=== PATIENT | male | born 1985 | race Caucasian/White ===

== ENCOUNTER 2017-08-02 10:33 | Emergency (ER) | payer MEDICAID, OTHER ==
[~2017-08-02] VITALS: Wt 84.0 kg
[2017-08-02] MEDS ORDERED: ACETAMINOPHEN 500 MG TAB PO STA (11:58)
[2017-08-02] MEDS ORDERED: IBUPROFEN 800 MG TAB PO ONE (12:00)
--- NOTE | 2017-08-02 12:04 | ERD ---
ER Documentation Chief Complaint Date/Time DATE: 08/02/17 TIME: 12:00 Chief Complaint HEADACHE, FLANK PAIN, FEVER HPI 32-year-old male who presents emergency department for multiple complaints including headache, flank pain, fever, productive cough. Stated that she has been having yellowish phlegm in the morning for 3 days. Added that he took 3 tablets of Advil 200 mg last night around 10 PM. Denies that this is the worst headache of his life, head trauma, dizziness, blurred vision, neck pain, throat pain, difficulty swallowing, shoulder pain, chest pain, abdominal pain, nausea, vomiting, constipation, diarrhea, recent travel, recent exposure to any illness, recent antibiotic use in the last 3 months, numbness or tingling sensation. No known drug allergies. No past medical history. No surgeries. Does not take any prescription medication at home. Social: Works as a manager pest. Denies smoking, use of alcohol, use of illegal drugs. ROS All systems reviewed and are negative except as per history of present illness. Medications Home Meds Active Scripts Acetaminophen* (Tylophen*) 500 Mg Capsule, 1 CAP PO Q6H Y for PAIN AND OR ELEVATED TEMP, #20 CAP Prov:SCARLETIVETAMIKELTON Rodrigues 08/02/17 Prednisone* (Prednisone*) 20 Mg Tab, 40 MG PO DAILY for 4 Days, TAB Prov:KRUPAKATTYAMIKELTON F 08/02/17 Albuterol Sulfate* (Proair HFA*) 8.5 Gm Hfa.aer.ad, 2 PUFF INH Q4, #1 INHALER Prov:KRUPAKATTYAMIKELTON Lilia 08/02/17 Azithromycin* (Zithromax*) 250 Mg Tablet, 250 MG PO .ZPACK DIRECTED, #6 TAB TAKE 500 MG (2 TABS) THE FIRST DAY THEN 250 MG (1 TAB) DAYS 2-5 Prov:NEAL SHAW 08/02/17 Allergies Allergies: Coded Allergies: No Known Allergy (Unverified , 08/02/17) Physical Exam Vitals Vital Signs Date Time Temp Pulse Resp B/P Pulse Ox O2 Delivery O2 Flow Rate FiO2 08/02/17 14:25 98.9 78 18 116/75 98 Room Air 08/02/17 12:58 101.2 88 18 128/69 98 Room Air 08/02/17 10:38 102.9 84 18 136/66 98 Physical Exam Const: [] Head: Atraumatic Eyes: Normal Conjunctiva ENT: Normal External Ears, Nose and Mouth. Throat: Uvula is midline nondisplaced. Tonsils are +2 bilaterally without redness and without exudates. Tolerating secretions. Patent airway. Speaks full and clear sentences. Neck: Full range of motion..~ No meningismus. Resp: Clear to auscultation bilaterally. No crepitus. Cardio: Regular rate and rhythm, no murmurs Abd: Soft, non tender, non distended. Normal bowel sounds Skin: No petechiae or rashes Back: No midline or flank tenderness. No CVA tenderness. Ext: No cyanosis, or edema Neur: Awake and alert Psych: Normal Mood and Affect Results 24 hrs Laboratory Tests Test 08/02/17 12:03 Urine Color YELLOW Urine Clarity CLEAR Urine pH 7.0 Urine Specific [place] 1.020 Urine Ketones NEGATIVEmg/dL Urine Nitrite NEGATIVEmg/dL Urine Bilirubin NEGATIVEmg/dL Urine Urobilinogen 2+mg/dL Urine Leukocyte Esterase NEGATIVELeu/ul Urine Microscopic RBC 9/HPF Urine Microscopic WBC 0/HPF Urine Hemoglobin 1+mg/dL Urine Glucose NEGATIVEmg/dL Urine Total Protein 1+mg/dl Current Medications Medications (Trade) Dose Ordered Sig/Yael Route PRN Reason Start Time Stop Time Status Last Admin Dose Admin Ibuprofen (Motrin) 800 mg ONCE ONCE PO 08/02/17 12:00 08/02/17 12:01 DC 08/02/17 12:07 Acetaminophen (Tylenol Tab) 1,000 mg ONCE STAT PO 08/02/17 11:58 08/02/17 12:00 DC 08/02/17 12:07 Ceftriaxone Sodium (Rocephin) 1 gm ONCE ONCE IM 08/02/17 13:00 08/02/17 13:01 DC 08/02/17 12:54 Procedures/MDM Examination: Please see physical examination. Disease process, medical treatment was explained to the patient and family member. They verbalized understanding and agreed with the diagnostic tests, medical treatment, and follow-up care. Radiology: Chest x-ray Impression: Right middle lobe infiltrate. Recommend correlation with pneumonia and follow-up to resolution. Treatment: Motrin. Tylenol.Ceftriaxone IM. Re-evaluation: Denies headache, dizziness, blurry vision, neck pain, shoulder pain, chest pain, back pain, abdominal pain, nausea, vomiting. No episode of emesis in the emergency department. Alert and oriented 4. Speaks full and clear sentences. Respirations even and unlabored. Lung sounds clear to auscultation. Active bowel sounds. There is no right upper/right lower/ epigastric/left upper/left lower abdominal tenderness and light and deep palpation. Negative on Rovsings sign. Negative Guttenberg sign. Able to jump 5 times without developing right-sided abdominal pain. No peritoneal signs. No episode of emesis in the emergency department.Ambulatory with steady gait. No neurovascular deficits. No neurological deficits. Consultation: Case discussed with supervising physician, Dr. Laureano Wilks agreed in my medical decision making to give 1 dose of ceftriaxone here in the emergency department and discharge patient if afebrile after antipyretics. Differential diagnosis: Sepsis versus pneumonia versus bronchitis Medical decision m[age]-year-old male who presents emergency department for multiple complaints including headache, flank pain, fever, productive cough. Stated that she has been having yellowish phlegm in the morning for 3 days. Added that he took 3 tablets of Advil 200 mg last night around 10 PM. Patient's complaint, patient's history about his complaint, my physical findings, diagnostic tests results, my reevaluation are consistent my final diagnosis of Pneumonia. Patient was afebrile prior to discharge. Medications prescribed are the following: Azithromycin. Pro-air. Prednisone. Tylenol. Patient and family member are made aware of the side effects and adverse reactions of the medications prescribed. Instructed on when to seek emergent and medical attention in case allergic/anaphylactic reactions or severe side effects and or adverse reactions to medications. Patient and family member verbalized understanding. Patient instructed Instructed to follow-up with his PCP in 24-48 hours. Instructed to Call 911 for chest pain, shortness of breath. Advised to come back here in ED as soon as possible for severity of symptoms which includes but not limited to: any new symptoms; shortness of breath/difficulty of breathing; cardiovascular changes; severe gastrointestinal symptoms; signs and symptoms of bleeding and or infection; signs of compartment syndrome/neurovascular changes; neurological changes/deficits. Patient and family member verbalized understanding. Upon discharge, patient is alert and oriented x 4, speaks full and clear sentences, denies pain, has no neurological deficits, has no neurovascular deficits, difficulty of breathing. Breathing even and unlabored. Lung sounds are clear to auscultation. Not in distress. Appears comfortable. Ambulatory with steady gait. Appears satisfied with care provided here in ED. Departure Diagnosis: Primary Impression: PNA (pneumonia) Condition: Stable Additional Instructions: Instructed to follow-up with his PCP in 24-48 hours. Instructed to Call 911 for chest pain, shortness of breath. Advised to come back here in ED as soon as possible for severity of symptoms which includes but not limited to: any new symptoms; shortness of breath/difficulty of breathing; cardiovascular changes; severe gastrointestinal symptoms; signs and symptoms of bleeding and or infection; signs of compartment syndrome/neurovascular changes; neurological changes/deficits. Patient and family member verbalized understanding. NEAL SHAW Aug 02, 2017 12:04
--- NOTE | 2017-08-02 12:24 | RADRPT ---
PROCEDURE: Chest radiograph series. CLINICAL INDICATION: Cough TECHNIQUE: PA and lateral chest x-ray. COMPARISON: None available FINDINGS: The cardiomediastinal silhouette is unremarkable. There is dense opacification of the right middle l obe consistent with infiltrate. The lungs are otherwise clear. No pleural effusion is seen. The osse ous structures are unremarkable. IMPRESSION: 1. Right middle lobe infiltrate. Recommend correlation with pneumonia and follow up to resolution.. RPTAT: AA .nAthony Caceres MD, MD Date Time Electronically viewed and signed by .Anthony Caceres MD, on 08/02/2017 12:24 .B/
[2017-08-02 12:36] LABS: ADD UMIC YES; UR ASCORBIC ACID NEGATIVE (NEGATIVE); UR BILIRUBIN (Dip) NEGATIVE (NEGATIVE); UR BLOOD (Dip) 1+ mg/dL (NEGATIVE); UR CLARITY CLEAR (CLEAR); UR COLOR YELLOW (YELLOW); UR GLUCOSE (Dip) NEGATIVE (NEGATIVE); UR KETONES (Dip) NEGATIVE (NEGATIVE); UR LEUKOCYTE ESTERASE (Dip) NEGATIVE Leu/ul (NEGATIVE); UR NITRITE (Dip) NEGATIVE (NEGATIVE); UR RBC 9 /HPF (0-5); UR TOTAL PROTEIN (Dip) 1+ mg/dl (NEGATIVE); UR UROBILINOGEN (Dip) 2+ mg/dL (NEGATIVE)
[2017-08-02] MEDS ORDERED: CEFTRIAXONE 1 GM INJ IM ONE (13:00)
[2017-08-02 14:25] VITALS: BP 116/75; PULSE 78; RESP 18; TEMP 98.9
[2017-08-02] MEDS ORDERED: AZIT250T94 PO (14:30)
[2017-08-02] MEDS ORDERED: ALBU8.5H3 INH (14:31)
[2017-08-02] MEDS ORDERED: ACET500C5 PO (14:31)
[2017-08-02] MEDS ORDERED: PRED20TA PO (14:31)
== END 2017-08-02 14:36 | disposition home or self-care (01) ==
LOC: FTE 10:33
DX: J18.9 Pneumonia, unspecified organism (principal)
CPT/HCPCS: 71020; 81001; 96372; J0696; Z7502; Z7610

== ENCOUNTER 2019-01-14 10:20 | Emergency (ER) | payer MEDICAID ==
[~2019-01-14] VITALS: Ht 167.6 cm; Wt 90.4 kg
[~2019-01-14 10:20] MED LIST: ACET500C5 PO; ALBU8.5H8 INH; AZIT250T PO; PRED20TA PO
[2019-01-14 10:29] VITALS: BP 138/68; PULSE 80; RESP 20; Ht 167.6 cm; Wt 90.4 kg
[2019-01-14] MEDS ORDERED: KETOROLAC 30 MG INJ IM STA (11:37)
[2019-01-14] MEDS ORDERED: IBUP-1542 PO (11:44)
[2019-01-14] MEDS ORDERED: AZIT500T3 PO (11:44)
[2019-01-14] MEDS ORDERED: D-ME473S2 PO (11:44)
--- NOTE | 2019-01-14 11:49 | ERD ---
ER Documentation Chief Complaint Chief Complaint Complains of a cough and severe headache x 3 days HPI 33-year-old male presents with nasal congestion, greenish yellow discharge, frontal headache. He also has mild cough. He may have had tactile fevers but no fever triage. This is been worsening over the last week. Is here with his son who has URI symptoms as well. He denies any photophobia, visual changes, vomiting, weakness or deficits or history of trauma. Denies any neck stiffness or rashes. ROS All systems reviewed and are negative except as per history of present illness. Medications Home Meds Active Scripts Dextromethorphan Hb-Promethazine Hcl* (Promethazine DM* Syrup) 473 Ml Syrup, 5 ML PO Q6 PRN for COUGH for 5 Days, ML Prov:NICK URIARTE MD 01/14/19 Azithromycin* (Zithromax*) 500 Mg Tablet, 500 MG PO DAILY for 3 Days, TAB Prov:NICK URIARTE MD 01/14/19 Ibuprofen* (Motrin*) 600 Mg Tab, 600 MG PO Q6, #20 TAB Prov:NICK URIARTE MD 01/14/19 Acetaminophen* (Tylophen*) 500 Mg Capsule, 1 CAP PO Q6H PRN for PAIN AND OR ELEVATED TEMP, #20 CAP Prov:NEAL SHAW 08/02/17 Prednisone* (Prednisone*) 20 Mg Tab, 40 MG PO DAILY for 4 Days, TAB Prov:NEAL SHAW 08/02/17 Albuterol Sulfate* (Proair HFA*) 8.5 Gm Hfa.aer.ad, 2 PUFF INH Q4, #1 INHALER Prov:NEAL SHAW 08/02/17 Azithromycin* (Zithromax*) 250 Mg Tablet, 250 MG PO .ZPACK DIRECTED, #6 TAB TAKE 500 MG (2 TABS) THE FIRST DAY THEN 250 MG (1 TAB) DAYS 2-5 Prov:NEAL SHAW 08/02/17 Allergies Allergies: Coded Allergies: No Known Allergy (Unverified , 01/14/19) PMhx/Soc Medical and Surgical Hx: pt denies Medical Hx, pt denies Surgical Hx Hx Alcohol Use: No Hx Substance Use: No Hx Tobacco Use: No FmHx Family History: No diabetes, No coronary disease, No other Physical Exam Vitals Vital Signs Date Temp Pulse Resp B/P (MAP) Pulse Ox O2 O2 Flow FiO2 Time Delivery Rate 01/14/19 98.9 80 20 138/68 97 10:29 (91) Physical Exam Const: No acute distress Head: Atraumatic Eyes: Normal Conjunctiva. Eyes Sherlyn and extraocular movements intact. ENT: Normal External Ears, Nose and Mouth. TMs normal. Pupils nasal congestion. Mild maxillary tenderness and bitemporal tenderness. No pulsatile masses. Neck: Full range of motion. No meningismus. Resp: Clear to auscultation bilaterally Cardio: Regular rate and rhythm, no murmurs Abd: Soft, non tender, non distended. Normal bowel sounds Skin: No petechiae or rashes Back: No midline or flank tenderness Ext: No cyanosis, or edema Neur: Awake and alert. Cranial nerves II through XII grossly intact. Normal gait. No appreciable focal neurologic deficits Psych: Normal Mood and Affect Results 24 hrs Current Medications Medications Dose Sig/Yael Start Time Status Last (Trade) Ordered Route PRN Stop Time Admin Dose Reason Admin Ketorolac 30 mg ONCE STAT 01/14/19 DC Tromethamine IM 11:37 (Toradol) 01/14/19 11:38 Procedures/MDM Patient presents with a one-week history of worsening nasal congestion and frontal headache. Current signs or symptoms do not suggest neurologic deficits, meningismus, additional concerning signs or symptoms. Patient given Toradol 30 mg IM. He may have sinusitis given progressive symptoms will be treated with Zithromax Tri-Dontrell, ibuprofen, promethazine, primary care follow-up and return precautions. The patient was stable with no new complaints during the ER course. Clinically, there is no current evidence to suggest meningitis, sepsis, acute abdomen, pneumonia, stroke, acute coronary syndrome, pulmonary embolism, aortic dissection or any other emergent condition appearing to require further evaluation or hospitalization. Patient counseled regarding my diagnostic impression and care plan. Prior to discharge all questions answered. Pt agrees with treatment plan and understands strict return precautions. Pt is instructed to follow up with primary care provider within 24-48 hours. Precautionary instructions provided including instructions to return to the ER if not improving or for any worsening or changing symptoms or concerns. Departure Diagnosis: Primary Impression: Sinusitis, acute Sinusitis location: unspecified location Recurrence: not specified as recurrent Qualified Codes: J01.90 - Acute sinusitis, unspecified Additional Impression: Headache Headache type: unspecified Headache chronicity pattern: unspecified pattern Intractability: not intractable Qualified Codes: R51 - Headache Condition: Stable Patient Instructions: Self-Care for Headaches, Sinusitis, Abx Tx Additional Instructions: . Cheque otro vez con celis doctor primario en el proximo sosa or regresa para mas o nueva simptomas. NICK URIARTE MD Jan 14, 2019 11:49
== END 2019-01-14 12:05 | disposition home or self-care (01) ==
LOC: FTE 10:20
DX: J01.90 Acute sinusitis, unspecified (principal)
CPT/HCPCS: 96372; J1885; Z7502